=== PATIENT | female | born 1930 | race Hispanic/Latino ===

== ENCOUNTER 2017-04-25 09:09 | Day surgery (SDC) | payer MEDICARE, MEDICAID ==
[2016-09-09 09:33] VITALS: BMI 24.7
[2017-04-25] MEDS ORDERED: cefTRIAXone (Rocephin) 1 gm Inj ONE (10:54)
[2017-04-25] MEDS ORDERED: Iohexol 240 (50 ml) ONE (10:54)
[2017-04-25] MEDS ORDERED: Lactated Ringer's 1,000 ML IV SCH (11:28)
[2017-04-25] MEDS ORDERED: Midazolam 2 MG/2 ML VIAL ONE (11:55)
[2017-04-25] MEDS ORDERED: Propofol 10 mg/ml Inj (20 ML) ONE (11:55)
[2017-04-25 13:50] VITALS: O2SAT 99
[2017-04-25 13:52] VITALS: PULSE 62
[2017-04-25 14:06] VITALS: RESP 18; TEMP 97.7
[2017-04-25 14:51] VITALS: BP 170/72
--- NOTE | 2017-04-25 15:05 | RAD ---
PROCEDURE: Fluoroscopy up to 1 hour HISTORY: STENT REMOVAL / INSERTION (RIGHT) COMPARISON: TECHNIQUE: Fluoroscopy was provided in the operating room. 14.8 seconds of fluoro time. Three images were submitted. FINDINGS: The study shows placement of a right ureteral stent. IMPRESSION: As above
--- NOTE | 2017-04-26 00:01 | OP ---
PROCEDURE DATE: 04/25/2017 PREOPERATIVE DIAGNOSES: Right renal calculi and right hydronephrosis. POSTOPERATIVE DIAGNOSES: Right renal calculi and right hydronephrosis. PROCEDURE: Cystoscopy, removal and reinsertion of right ureteral stent. ATTENDING SURGEON: Dr. Tom Holbrook. ANESTHESIA: IV sedation. SPECIMENS: There were none. DRAINS: A 6 x 24 right ureteral stent. COMPLICATIONS: There were none. OPERATIVE FINDINGS: After informed consent was obtained, the patient was taken to the operating room and placed on the operating table and anesthesia was administered. The patient was placed in the dorsal lithotomy position and prepped and draped in the usual sterile fashion. Intravenous antibiotics were given prior to start of the procedure. A 21-Pashto cystoscope was passed into the patient's bladder and a full survey inspection was performed. There were no stones or bladder tumors noted. There was stent noted exiting from the urethral orifice. There was grade 2 trabeculation with some cellules and diverticulum of the bladder noted. Left ureteral orifice was normal. There was a stent exciting from the right ureteral orifice. At this point, a Sensor wire was obtained, it was passed through the cystoscope and guided into the right urethral orifice. The wire was able to be advanced proximally under fluoroscopic guidance until it coiled in the upper collecting system. At this point, the cystoscope was removed and re-passed. A grasping forceps was passed, the stent was then grasped and withdrawn through the urethral meatus. On fluoroscopy, the stent was able to removed in its entirety without any difficulty while the wire remained in place. The cystoscope was then back loaded over the guidewire and re-passed into the bladder. A 6 x 24 stent was obtained that was passed through the cystoscope over the guidewire and into the right urethral orifice. The stent was advanced proximally under direct and fluoroscopic guidance until it was in at the appropriate position. When the stent was in place, the guidewire was removed. A coil was seen in the collecting system on fluoroscopy, a coil was seen in bladder on cystoscopy. Of note, there were multiple large renal calculi noted in the right kidney. At this point, the procedure was completed, the bladder was drained and the cystoscope was removed. The patient tolerated the procedure well. She was returned to the supine position and taken to the recovery room awake and in stable condition. Tom Holbrook MD [facility] # [id number]
== END 2017-04-25 15:20 ==
LOC: SDS 09:09
PROVIDERS: ATTEND Urology
DX: N13.2 Hydronephrosis with renal and ureteral calculous obstruction (principal); N32.3 Diverticulum of bladder; I10 Essential (primary) hypertension
CPT/HCPCS: 52332; 76000; C1769; C2625; J0696; J2001; J2250; J2704; J3010; J7120 ×2